=== PATIENT | female | born 1990 | race African-American/Black ===

== ENCOUNTER 2019-01-01 06:44 | Emergency (ER) | payer OTHER ==
[~2019-01-01] VITALS: Ht 172.7 cm; Wt 108.9 kg
[2019-01-01 06:56] VITALS: BP 150/84
[2019-01-01] MEDS ORDERED: LORazepam 2MG/ML-1ML VIAL ONE (12:06)
== END 2019-01-01 07:54 | disposition home or self-care (01) ==
LOC: ER 06:44
DX: H10.33 Unspecified acute conjunctivitis, bilateral (principal)
CPT/HCPCS: 99283; J2060